=== PATIENT | male | born 1960 ===

== ENCOUNTER 2022-08-24 11:47 | Observation (INO) | payer OTHER ==
[~2022-08-24] VITALS: Ht 167.6 cm; Wt 81.2 kg
[2022-08-24 11:47] VITALS: BP 178/112
--- NOTE | 2022-08-24 11:47 | NUR ---
ARRIVAL PT ARRIVED VIA EMS TO ED 4 WITH C/O CHEST PAIN UPON CALLING 911. EMS INITIATED IV AND GAVE NS, NITRO X2, FENTANYL, ASPIRIN, AND ZOFRAN. VITALS TAKEN AND DR NOTIFIED.
--- NOTE | 2022-08-24 12:15 | ER.PDOC ---
General Chief Complaint: Requesting Medical Care Stated Complaint: CHEST PAIN Time seen by MD: 12:08 Source: patient, EMS Exam Limitations: no limitations History of Present Illness Initial Comments 61 yo man presented to the ER with severe substernal chest pain. 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 He has an artificial mitral valve and takes anti coagulants The chest pain was crushing and unreleaved with NTG sl/Drip He had an elev ated BP at the seen Upon arrival the pain was gone Non reproducible No nausea no radiation Denies prior MA EKG did not reveal an acute issue Timing/Duration: 1 hour Severity/Quality: severe Radiation: no radiation Activities at Onset: none Prior CP/Workup: No Prior Cardiac Workup, Cardiac Cath, Other (mitral valve replacement Hx of Atrial Fib) Nitro Today/Relief: 0.4 mg x 2, Provided By EMS Aspirin Today: 325 mg x 1 Allergies: Coded Allergies: No Known Allergies (Unverified , 08/24/22) Past Medical History Medical History: cardiac problems, hypertension Surgical History: other (mitral valve) Family History Significant Family History: no pertinent family hx Social History Smoking: non-smoker Drug Use: none Reviewed Nursing Reviewed: Vital Signs, Abn. Noted Constitutional: no symptoms reported EENTM: no symptoms reported Respiratory: no symptoms reported Cardiovascular: see HPI Gastrointestinal: no symptoms reported Genitourinary: no symptoms reported Musculoskeletal: no symptoms reported Skin: no symptoms reported Psychiatric/Neurological: no symptoms reported Endocrine: no symptoms reported Hematologic/Lymphatic: no symptoms reported All Other Systems: Reviewed and Negative Physical Exam General Appearance: WD/WN, Anxious, Mild Distress HEENT: PERRL/EOMI, Normal ENT Inspection Neck: Non-Tender, Full Range of Motion, Supple Respiratory: chest non-tender, lungs clear, normal breath sounds, no respiratory distress, other (well healed thoracostomy scar) Gastrointestinal: Normal Bowel Sounds, No Organomegaly, No Pulsatile Mass Extremities: Normal Range of Motion, Non-Tender, Normal Inspection, No Pedal Edema Neurologic/Psychiatric: leather scrubber 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 NML as Tested, No Motor/Sensory Deficits, Alert Skin: Normal Color, Warm/Dry, Cyanosis Results/Orders Results/Orders Laboratory Tests Test 08/24/22 12:12 White Blood Count 8.3 10^3/uL (4.5-11.0) Red Blood Count 4.22 10^6/uL (4.50-5.90) Hemoglobin 12.9 g/dL (13.9-16.3) Hematocrit 39.1 % (37.0-53.0) Mean Corpuscular Volume 92.7 fL (78-100) Mean Corpuscular Hemoglobin 30.6 pg (26-34) Mean Corpuscular Hemoglobin Concent 33.0 g/dL (33-36.5) Red Cell Distribution Width 13.4 % (11.5-14.5) Platelet Count 183 10^3/uL (150-400) Mean Platelet Volume 8.9 fL (7.8-11.0) Neutrophils (%) (Auto) 68.0 % (41.0-85.0) Lymphocytes (%) (Auto) 16.0 % (24.0-44.0) Monocytes (%) (Auto) 6.9 % (5.0-12.0) Neutrophils # (Auto) 5.6 10^3/uL (1.8-7.7) Lymphocytes # (Auto) 1.32 10^3/uL1 (1.0-4.8) Monocytes # (Auto) 0.6 10^3/uL (0.3-0.8) Absolute Immature Granulocyte (auto 0.13 10^3 u/L (0-2) Absolute Eosinophils (auto) 0.5 10^3/uL (0.0-0.2) Immature Granulocytes % 1.60 % (0.00-0.50) Eosinophils % 6.5 % (0.0-5.0) Basophils % 1.0 % (0.0-0.2) Basophils # 0.1 10^3/uL (0.0-0.1) Sodium Level 133 mmol/L (132-145) Potassium Level 4.4 mmol/L (3.6-5.2) Chloride Level 99.0 mmol/L (96-109) Carbon Dioxide Level 26.8 mmol/L (20.0-32) Anion Gap 11.6 Blood Urea Nitrogen 16 mg/dL (7-18) Creatinine 1.28 mg/dL (0.59-1.40) Estimated GFR () 68.7 (>/=60) Est GFR (CKD-EPI)(Non-Afr Montserratian) 56.8 (>/=60) BUN/Creatinine Ratio 12.0 (10.0-20.0) Glucose Level 189 mg/dL (70-110) Calcium Level 8.2 mg/dL (8.4-10.5) Total Bilirubin 0.5 mg/dL (0.2-1.0) Aspartate Amino Transf (AST/SGOT) 33 U/L (0-35) Alanine Aminotransferase (ALT/SGPT) 53 U/L (12-78) Alkaline Phosphatase 66 U/L (50-136) Total Creatine Kinase 114 U/L (39-308) Creatine Kinase MB 0.5 ng/mL (0.5-3.6) Troponin I High Sensitivity 49 ng/L (0-75) Pro-B-Type Natriuretic Peptide 1226 pg/mL (0-125) Total Protein 7.2 g/dL (6.4-8.2) Albumin 3.5 g/dL (3.4-5.0) Globulin 3.7 Albumin/Globulin Ratio 0.945 Joshua - ALINA JARRETT MD EKG (08/24/22 12:09) Xr Chest 1v (08/24/22 12:09) Cbc With Auto Diff (08/24/22 12:09) Comprehensive Metabolic Panel (08/24/22 12:09) Creatine Kinase (08/24/22 12:09) Creatine Kinase Mb (08/24/22 12:09) Probnp B-Type Broadcast Maintenance Engineer (08/24/22 12:09) Troponin I High Sensitivity (08/24/22 12:09) Sl elevated BNP troponin neg I spoke with the patient and explained the need for admission I had alreerachid spoken with Kerri Chisholm and Dr Minor at around 1:390 and agreed to admit will need serial exzymes EKG/XRAY/CT/US EKG: rhythm (atrial fib), QRS (narrow complexes), nonspecific ST T wave chg EKG Comments: normal axis XRAY: chest XRAY Comments: no active disease per report Consult/PCP Time Consult/PCP Called: 13:18 Consult/PCP: Dr Chisholm and DR Alvarado ~13:20 Reason/Comments: admission to r/o acs ER DEPART Departure Time of Disposition: 14:39 Disposition: 09 ADMITTED INPATIENT Impression: Primary Impression: CAD (coronary artery disease) Additional Impressions: H/O mitral valve replacement with mechanical valve HBP (high blood pressure) Condition: Stable Referrals: PCP,UNKNOWN (PCP) PRIMARY CARE PROVIDER Duration or Time Spent with Pa: 60 Problem Qualifiers ALINA JARRETT MD Aug 24, 2022 12:15
--- NOTE | 2022-08-24 12:19 | PCM.EKG ---
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
[2022-08-24 12:22] LABS: BASOPHIL # 0.1 10^3/uL (0.0-0.1); EOSINOPHIL # 0.5 10^3/uL (0.0-0.2); EOSINOPHIL % 6.5 % (0.0-5.0); LYMPHOCYTES # 1.32 10^3/uL1 (1.0-4.8); MEAN CORP HGB 30.6 pg (26-34); MONOCYTES # 0.6 10^3/uL (0.3-0.8); MONOCYTES % 6.9 % (5.0-12.0); NEUTROPHIL # 5.6 10^3/uL (1.8-7.7); PLATELET COUNT 183 10^3/uL (150-400); RED CELL DISTRIBUTION WIDTH 13.4 % (11.5-14.5)
--- NOTE | 2022-08-24 12:30 | NUR ---
BLOOD SUGAR IS 171MG/DL
[2022-08-24 12:45] LABS: CARBON DIOXIDE 26.8 mmol/L (20.0-32)
--- NOTE | 2022-08-24 13:03 | DIREP ---
PROCEDURE:CHEST 1 VIEW COMPARISON:None. INDICATIONS:chest pain ? aneurysim FINDINGS: LUNGS/PLEURA:No focal consolidation, pleural effusion, or pneumothorax. Subsegmental left basilar atelectasis. VASCULATURE:Mild pulmonary vascular congestion. CARDIAC:Normal heart size. Evidence of prior valve replacement surgery. Left atrial appendage occlusion device noted. MEDIASTINUM:Median sternotomy changes. Aortic arch calcifications. No visible mass or adenopathy. BONES:Normal. No fracture or visible bony lesion. OTHER:Negative. CONCLUSION: 1. No obvious aneurysm, though this would be better assessed with CT. 2. Mild pulmonary vascular congestion without overt edema. Dictated by: Nate Culver M.D. On 08/24/2022 at 01:00 PM
--- NOTE | 2022-08-24 13:12 | NUR ---
HOSPITALIST DR JARRETT ON THE PHONE WITH DR GAMBOA
--- NOTE | 2022-08-24 13:19 | NUR ---
VIET JARRETT ON THE PHONE WITH VIET
[2022-08-24] MEDS ORDERED: ASPIRIN PO STA (13:26)
[2022-08-24] MEDS ORDERED: PROTONIX PO STA (14:16)
--- NOTE | 2022-08-24 14:19 | PCM.HP ---
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 He pulled over and immediately presented here. Patient reports while he has had a mitral valve replaced many years prior, he has never had similar pain such as this. He has never had a heart cath, and knows of no other cardiac history. He had otherwise been in his usual state of good health, and has no history of GERD. Time of my exam his pain is markedly improved, though he is concerned that his blood pressure is elevated to the 180s systolic which he reports is markedly above his norm. Review of Systems Other Complete review of systems negative except as per HPI Allergies: Coded Allergies: No Known Allergies (Unverified , 08/24/22) VTE VTE Risk Score VTE Risk: Score 0-1 = Low Risk (Aggressive mobilization; early ambulation; no VTE prophylaxis required) Score 2: Moderate Risk (Intermittent/Pneumatic Compression Device OR Lovenox/Heparin/Coumadin) Score 3-4: High Risk (Intermittent/Pneumatic Compression Device AND Lovenox/Heparin/Coumadin) Score > or =5: Highest Risk (Intermittent/Pneumatic Compression Device AND Lovenox/Heparin/Coumadin) Exam Vital Signs Vital Signs Date Time Temp Pulse Resp B/P (MAP) Pulse Ox O2 Delivery O2 Flow Rate FiO2 08/24/22 11:47 97.6 91 18 08/24/22 11:47 178/112 (134) 91 Room Air* 0 21 General Appearance: Alert, Oriented X3, Cooperative, No acute distress HEENT: Atraumatic, PERRLA, EOMI, Mucous membr. moist/pink Respiratory: Clear to auscultation, Normal air movement Cardiovascular: Regular rate Abdominal: Normal bowel sounds, Soft, No tenderness Extremities: No clubbing, No cyanosis Skin: No rash, No breakdown Neuro: Normal gait, Normal speech, Strength at 5/5 X4 ext Psych/Mental Status: Mental status NL, Mood NL Assessment/Plan Assessment/Plan Problems: (1) H/O mitral valve replacement with mechanical valve Status: Chronic Assessment & Plan: On Eliquis, appears to be functioning well has never had issues with since placement ICD Code: Z95.2 - Presence of prosthetic heart valve SNOMED: 54315999, [id number] (2) HTN (hypertension) Status: Chronic Assessment & Plan: Systolics were in the 180s upon arrival, did not appear to correlate with the patient's chest pain, starting Coreg 12 and will titrate as needed ICD Code: I10 - Essential (primary) hypertension SNOMED: 47414020 (3) CAD (coronary artery disease) Status: Acute Assessment & Plan: Acute chest pain at rest today no other cardiac history stay for mitral valve, no history of stresses or left heart catheterization, though he has had echoes in the past associated with the valve placement and monitoring. We will give high-dose aspirin now, start patient on atorvastatin and plan for echo in the morning after serial troponins overnight. ICD Code: I25.10 - Atherosclerotic heart disease of kiana coronary artery without angina pectoris SNOMED: 65735018 ANDRES GAMBOA MD Aug 24, 2022 14:19
[2022-08-24 15:00] VITALS: BP 190/135
[2022-08-24] MEDS: COREG PO SCH ×2 (16:28→22:08)
[2022-08-24 19:20] VITALS: BP 169/120
[2022-08-24] MEDS ORDERED: VALS1TAB8 PO (20:27)
[2022-08-24] MEDS ORDERED: METF500T17 PO (20:27)
[2022-08-24] MEDS ORDERED: AMIO100T4 PO (20:40)
[2022-08-24] MEDS ORDERED: LINA5TAB PO (20:40)
[2022-08-24] MEDS ORDERED: VALS80TA3 PO (20:40)
[2022-08-24] MEDS ORDERED: PRAV40TA2 PO (20:40)
[2022-08-24] MEDS ORDERED: APIX5TAB PO (20:40)
[2022-08-24] MEDS ORDERED: CARV6.25 PO (20:40)
[2022-08-24] MEDS ORDERED: ASPI-667 PO (20:40)
[2022-08-24] MEDS ORDERED: METF10007 PO (20:40)
[2022-08-24] MEDS: ELIQUIS PO SCH (22:20)
[2022-08-24] MEDS ORDERED: TRADJENTA PO SCH (23:00)
[2022-08-24] MEDS ORDERED: ASPIRIN PO SCH (23:00)
[2022-08-24] MEDS ORDERED: CLARITIN PO ONE (23:00)
[2022-08-25 00:15] VITALS: BP 122/62
[2022-08-25] MEDS ORDERED: FLONASE NS PRN (03:30)
[2022-08-25 04:43] VITALS: BP 128/79
[2022-08-25 05:42] LABS: BASOPHIL # 0.1 10^3/uL (0.0-0.1); BASOPHIL % 0.9 % (0.0-0.2); EOSINOPHIL # 0.5 10^3/uL (0.0-0.2); EOSINOPHIL % 6.6 % (0.0-5.0); LYMPHOCYTES # 1.85 10^3/uL1 (1.0-4.8); LYMPHOCYTES % 23.6 % (24.0-44.0); MEAN CORP HGB 30.1 pg (26-34); MONOCYTES # 0.6 10^3/uL (0.3-0.8); NEUTROPHIL # 4.8 10^3/uL (1.8-7.7); NEUTROPHILS % 60.6 % (41.0-85.0); PLATELET COUNT 200 10^3/uL (150-400); RED CELL DISTRIBUTION WIDTH 13.5 % (11.5-14.5)
[2022-08-25 05:47] LABS: CARBON DIOXIDE 29.1 mmol/L (20.0-32)
[2022-08-25] MEDS ORDERED: GLUCOPHAGE ONE (07:54)
[2022-08-25] MEDS ORDERED: PROTONIX PO ONE (07:54)
[2022-08-25] MEDS: COREG PO SCH (08:07)
[2022-08-25] MEDS: ELIQUIS PO SCH (08:08)
[2022-08-25 08:27] VITALS: BP 175/94
[2022-08-25] MEDS ORDERED: COREG PO SCH ×4 (09:00→21:00)
[2022-08-25] MEDS ORDERED: GLUCOPHAGE PO SCH (09:00)
[2022-08-25] MEDS ORDERED: CORDARONE PO SCH (09:00)
[2022-08-25] MEDS ORDERED: COZAAR PO SCH (09:00)
[2022-08-25] MEDS ORDERED: ASPIRIN PO SCH (09:00)
[2022-08-25] MEDS ORDERED: PROTONIX PO SCH (09:00)
[2022-08-25] MEDS ORDERED: TRADJENTA PO SCH (09:00)
[2022-08-25] MEDS ORDERED: ELIQUIS PO SCH (09:00)
[2022-08-25 11:45] VITALS: BP 135/72
[2022-08-25] MEDS ORDERED: CARV12.5 PO (13:51)
--- NOTE | 2022-08-25 13:53 | PRM.DC ---
Discharge Summary Date of Discharge: Aug 25, 2022 Time of Request to Discharge: 13:52 Hospital Course Mr. Pete is a very pleasant 61-year-old gentleman with history of congenital m itral valve information who underwent mechanical mitral valve replacement who also has hypertension and diabetes who was tracking across country with his when he experienced acute chest pain. He was subsequently admitted given his risk factors for serial troponins as well as echo in the morning, though none of these revealed any acute cardiac complaints. As a consequence the patient's antihypertensives were adjusted slightly with an increase in his Coreg from 6-12 continue his home valsartan aspirin and pravastatin while he remained on Eliquis for his mitral valve. Given the fact that he already follows with a consultant internship in [place], the patient is discharged with refills of his Coreg and will follow-up in clinic with his consultant internship when he returns home. General: Alert, Oriented X3, Cooperative, No acute distress HEENT: Atraumatic, PERRLA, EOMI, Mucous membr. moist/pink Neck: Supple, No JVD, No thyromegaly Lungs: Clear to auscultation, Normal air movement Heart: Regular rate, Normal S1, Normal S2 Abdomen: Normal bowel sounds, Soft Extremities: No clubbing, No cyanosis Skin: No rashes, No breakdown Neuro: Normal gait, Normal speech, Strength at 5/5 X4 ext Psych/Mental Status: Mental status NL, Mood NL Scheduled Amiodarone HCl (Amiodarone HCl), 100 MG PO BID, (Reported) Apixaban (Eliquis), 5 MG PO BID, (Reported) Aspirin (Aspirin), 81 MG PO DAILY24, (Reported) Carvedilol 12.5MG (Coreg 12.MG), 12.5 MG PO BID Carvedilol 6.25MG (Coreg 6.25MG), 6.25 MG PO BID, (Reported) Linagliptin (Tradjenta), 5 MG PO DAILY24, (Reported) Metformin Hcl (Metformin Hcl), 1,000 MG PO BID, (Reported) Pravastatin Sodium (Pravastatin Sodium), 40 MG PO HS, (Reported) Valsartan (Diovan), 80 MG PO BID, (Reported) Discontinued Medications Metformin Hcl (Metformin Hcl), 2 TAB PO DAILY24, (Reported) Discontinued Reason: Cancel Valsartan/Hydrochlorothiazide (Diovan Hct 160-12.5 Mg Tab), 1 TAB PO DAILY, (Reported) Discontinued Reason: Discontinue Sepsis Evaluation @ Discharge 08/25/22 08:50 Course Sepsis Screening Results: Posi: NEGATIVE Sepsis Qualifier/Stage: NO DEFINITE RISK Duration or Total Time Spent w: 60 Vitals & review Data Vital Sign - Last 24 Hours 08/24/22 08/24/22 08/24/22 08/24/22 15:00 16:28 16:48 18:08 Temp 98.4 Pulse 73 73 Resp 20 B/P (MAP) 190/135 (153) 190/135 Pulse Ox 98 O2 Delivery Room Air* Room Air Room Air O2 Flow Rate 0 0.00 0.00 FiO2 21 08/24/22 08/24/22 08/24/22 08/24/22 19:10 19:11 19:20 22:08 Temp 97.7 Pulse 104 104 Resp 20 B/P (MAP) 169/120 (136) 169/120 Pulse Ox 94 O2 Delivery Room Air Room Air Room Air* O2 Flow Rate 0.00 0.00 0 FiO2 21 08/25/22 08/25/22 08/25/22 08/25/22 00:15 04:43 08:07 08:27 Temp 97.5 98.5 97.5 Pulse 44 67 67 59 Resp 18 18 18 B/P (MAP) 122/62 (82) 128/79 (95) 128/79 175/94 (121) Pulse Ox 88 92 95 O2 Delivery Room Air* Room Air* Room Air* O2 Flow Rate 0 0 0 FiO2 21 21 21 08/25/22 08/25/22 08/25/22 08/25/22 08:50 08:54 08:57 11:45 Temp 97.9 Pulse 59 58 Resp 18 B/P (MAP) 175/94 175/94 135/72 (93) Pulse Ox 98 O2 Delivery Room Air Room Air* O2 Flow Rate 0.00 0 FiO2 21 Intake and Output 08/25/22 07:00 Intake Total 400 ml Balance 400 ml Laboratory Tests Test 08/24/22 12:12 08/24/22 16:39 08/24/22 17:41 08/24/22 19:17 White Blood Count 8.3 10^3/uL Red Blood Count 4.22 10^6/uL Hemoglobin 12.9 g/dL Hematocrit 39.1 % Mean Corpuscular Volume 92.7 fL Mean Corpuscular Hemoglobin 30.6 pg Mean Corpuscular Hemoglobin Concent 33.0 g/dL Red Cell Distribution Width 13.4 % Platelet Count 183 10^3/uL Mean Platelet Volume 8.9 fL Neutrophils (%) (Auto) 68.0 % Lymphocytes (%) (Auto) 16.0 % Monocytes (%) (Auto) 6.9 % Neutrophils # (Auto) 5.6 10^3/uL Lymphocytes # (Auto) 1.32 10^3/uL1 Monocytes # (Auto) 0.6 10^3/uL Absolute Immature Granulocyte (auto 0.13 10^3 u/L Absolute Eosinophils (auto) 0.5 10^3/uL Immature Granulocytes % 1.60 % Eosinophils % 6.5 % Basophils % 1.0 % Basophils # 0.1 10^3/uL Sodium Level 133 mmol/L Potassium Level 4.4 mmol/L Chloride Level 99.0 mmol/L Carbon Dioxide Level 26.8 mmol/L Anion Gap 11.6 Blood Urea Nitrogen 16 mg/dL Creatinine 1.28 mg/dL Estimated GFR () 68.7 Est GFR (CKD-EPI)(Non-Afr Micronesian) 56.8 BUN/Creatinine Ratio 12.0 Glucose Level 189 mg/dL Calcium Level 8.2 mg/dL Total Bilirubin 0.5 mg/dL Aspartate Amino Transf (AST/SGOT) 33 U/L Alanine Aminotransferase (ALT/SGPT) 53 U/L Alkaline Phosphatase 66 U/L Total Creatine Kinase 114 U/L Creatine Kinase MB 0.5 ng/mL Troponin I High Sensitivity 49 ng/L 48 ng/L 48 ng/L Pro-B-Type Natriuretic Peptide 1226 pg/mL Total Protein 7.2 g/dL Albumin 3.5 g/dL Globulin 3.7 Albumin/Globulin Ratio 0.945 Bedside Glucose 190 Test 08/24/22 20:10 08/25/22 05:22 08/25/22 07:22 08/25/22 11:25 Bedside Glucose 177 181 212 White Blood Count 7.9 10^3/uL Red Blood Count 4.48 10^6/uL Hemoglobin 13.5 g/dL Hematocrit 41.0 % Mean Corpuscular Volume 91.5 fL Mean Corpuscular Hemoglobin 30.1 pg Mean Corpuscular Hemoglobin Concent 32.9 g/dL Red Cell Distribution Width 13.5 % Platelet Count 200 10^3/uL Mean Platelet Volume 8.6 fL Neutrophils (%) (Auto) 60.6 % Lymphocytes (%) (Auto) 23.6 % Monocytes (%) (Auto) 8.0 % Neutrophils # (Auto) 4.8 10^3/uL Lymphocytes # (Auto) 1.85 10^3/uL1 Monocytes # (Auto) 0.6 10^3/uL Absolute Immature Granulocyte (auto 0.02 10^3 u/L Absolute Eosinophils (auto) 0.5 10^3/uL Immature Granulocytes % 0.30 % Eosinophils % 6.6 % Basophils % 0.9 % Basophils # 0.1 10^3/uL Sodium Level 137 mmol/L Potassium Level 4.3 mmol/L Chloride Level 102.0 mmol/L Carbon Dioxide Level 29.1 mmol/L Glucose Level 175 mg/dL Blood Urea Nitrogen 15 mg/dL Creatinine 1.19 mg/dL Calcium Level 8.8 mg/dL Anion Gap 10.2 Estimated GFR () 74.7 Est GFR (CKD-EPI)(Non-Afr Micronesian) 61.7 BUN/Creatinine Ratio 12.0 Troponin I High Sensitivity 48 ng/L Current Medications Medications (Trade) Dose Ordered Sig/Manuel PRN Reason Start Time Stop Time Status Last Admin Amiodarone HCl (Cordarone) 100 mg BID 08/25/22 09:00 09/24/22 08:59 08/25/22 08:54 Atorvastatin Calcium (Lipitor) 10 mg HS 08/25/22 21:00 09/24/22 20:59 Carvedilol (Coreg) 12.5 mg BID 08/25/22 21:00 09/24/22 20:59 Fluticasone Propionate (Flonase) 2 sprays BID PRN CONGESTION 08/25/22 03:30 09/24/22 03:29 Losartan Potassium (Cozaar) 50 mg DAILY 08/25/22 09:00 09/24/22 08:59 08/25/22 08:57 Metformin HCl (Glucophage) 1,000 mg BIDM 08/25/22 09:00 09/24/22 08:59 08/25/22 08:07 Pantoprazole Sodium (Protonix) 40 mg DAILY 08/25/22 09:00 09/24/22 08:59 08/25/22 08:08 LEVEL 1 SEPSIS INFECTION CRITE: None/Not assessed LEVEL 2-SIRS (LIST ALL THAT AP: None/Not assessed Cardiovascular Evidence: Not Assessed or None Hematologic Evidence: None/Not assessed Hepatic Evidence: None/Not assessed Metabolic Evidence: None/Not assessed Neurological Evidence: None/Not assessed Respiratory Evidence: None/Not assessed Renal Evidence: None/Not assessed O2 Sat by Pulse Oximetry: 98 Oxygen Flow Rate: 0.00 ANDRES GAMBOA MD Aug 25, 2022 13:53
[2022-08-25 14:50] VITALS: BP 135/72
--- NOTE | 2022-08-25 14:50 | NUR ---
DISCHARGE NOTE IV DC'D, TIP INTACT. VERBAL AND WRITTEN DISCHARGE INSTRUCTIONS GIVEN, VERBALIZED UNDERSTANDING, TO PV VIA WC IN STABLE CONDITION
--- NOTE | 2022-08-25 15:15 | PCM.ECHO ---
APPROVED REPORT EXAM: Comprehensive 2D, Doppler, and color-flow Echocardiogram. Patient Location: IN-PATIENT Indications ACS 2D Dimensions RVDd 3.50 cm (0.4-1.4cm/m2) LVOT Diameter 2.30 (1.8-2.4cm) LVEF(%) 54.70 (>50%) M-Mode Dimensions RVDd 2.50 (2.1-3.2cm) Left Atrium(MM) 3.95 (2.5-4.0cm) IVSd 1.20 (0.7-1.1cm) Aortic Root 4.00 (2.2-3.7cm) LVDd 4.80 (4.0-5.6cm) Aortic Cusp Exc 1.65 (1.5-2.0cm) PWd 1.05 (0.7-1.1cm) MV EPSS 1.49 (<0.5cm) IVSs 1.50 cm FS (%) 32.25 % LVDs 3.25 (2.0-3.8cm) ESV(Teich) 43.47 ml PWs 1.55 cm LVEF(%) 60.41 (>50%) Volumes Biplane 2D LV Volumes Biplane 2D LA Volumes LVEDv A4C 43.11 mL LA ESV Index LVESv A4C 19.53 mL Aortic Valve AoV Peak Ladarius. 0.75 m/s AoV VTI 17.60 cm AO Peak GR. 2.35 mmHg AO Mean GR. 1.50 mmHg JAIME (VMAX) 2.95 cm2 Mitral Valve MV E Velocity 1.70m/s MR Peak Gr. 4.85mmHg MV DECEL TIME 353.65ms MV A Velocity 0.55m/s Tricuspid Valve TR P. Velocity 2.05m/s RAP ESTIMATE 5.00mmHg TR Peak Gr. 18.27mmHg LEFT VENTRICLE The left ventricle is normal size. The left ventricular systolic function is normal. The left ventricular ejection fraction is within the normal range. There is normal left ventricular wall thickness. There is normal LV segmental wall motion. There is no ventricular septal defect visualized. No left ventricle thrombus noted on this study. LVEF is 55%. RIGHT VENTRICLE The right ventricle is normal size. The right ventricular systolic function is normal. There is normal right ventricular wall thickness. ATRIA Left atrium is moderately dilated. Right atrium is severely dilated. The interatrial septum is intact with no evidence for an atrial septal defect. AORTIC VALVE The aortic valve is normal in structure. There is no aortic valvular stenosis. No aortic regurgitation is present. There is no aortic valvular vegetation. MITRAL VALVE There is no mitral valve stenosis. Mild to moderate mitral regurgitation. There is no evidence of mitral valve vegetations. Mechanical mitral valve is present. Prosthetic mitral valve is normal in appearance. Prosthetic mitral valve opening is normal. TRICUSPID VALVE The tricuspid valve is normal in structure. There is no tricuspid valve stenosis. Moderate tricuspid regurgitation. There is no tricuspid valve vegetations. PULMONIC VALVE The pulmonary valve is normal in structure. There is no pulmonic valvular stenosis. There is no pulmonic valvular regurgitation. There is no pulmonic valve vegetations. GREAT VESSELS The aortic root is normal in size. Pulmonary artery is not well visualized. Aortic arch is not well visualized. The IVC is normal in size and collapses >50% with inspiration. PERICARDIUM There is no pericardial effusion. There is no pleural effusion. Other Information Study Quality: Fair <Conclusion> The left ventricular systolic function is normal. LVEF is 55%. Left atrium is moderately dilated. Right atrium is severely dilated. Mechanical mitral valve is present. Prosthetic mitral valve is normal in appearance. Prosthetic mitral valve opening is normal. Mild to moderate mitral regurgitation. Moderate tricuspid regurgitation. Electronically signed by : RAJI LLANOS. 08/25/2022 15:15:30
[2022-08-25] MEDS ORDERED: LIPITOR PO SCH (21:00)
--- NOTE | 2022-08-25 23:43 | CNH ---
DATE OF CONSULTATION: 08/25/2022 DICTATOR NAME: RAJI LLANOS DO REASON FOR CONSULTATION: Chest pain. HISTORY OF PRESENT ILLNESS: This is a 61-year-old male who presented to the Emergency Room with sudden onset of chest discomfort. Upon presentation, EKG shows chronic atrial fibrillation with controlled ventricular response with a prolonged QT interval. He has a known history of atrial fibrillation. High-sensitive troponin was negative x 4. At this time, he denies any chest pain symptoms. A consultation was placed to Cardiology Service for evaluation. PAST MEDICAL HISTORY: Significant for: * Chronic atrial fibrillation. * History of mitral valve disease, status post mitral valve replacement surgery. * Hypertension. * Diabetes mellitus. * Hyperlipidemia. PAST SURGICAL HISTORY: Status post mitral valve replacement surgery with mechanical valve. ALLERGIES: He has no known drug allergies. MEDICATIONS: He takes at home: * Amiodarone 100 mg p.o. b.i.d. * Eliquis 5 mg p.o. b.i.d. * Aspirin 81 mg daily. * Carvedilol 12.5 mg p.o. b.i.d. * Tradjenta. * Metformin. * Pravastatin 40 mg p.o. at bedtime. * Diovan 80 mg p.o. b.i.d. SOCIAL HISTORY: Denies tobacco use, denies alcohol use, denies illicit drug use. FAMILY HISTORY: Denies any family history of premature coronary artery disease or sudden cardiac . REVIEW OF SYSTEMS: As per HPI and as per ER records. All systems reviewed, negative for interval change. PHYSICAL EXAMINATION: VITALS: Blood pressure is 135/72, respiratory rate is 18, pulse is 58, temperature is 97.9, pulse oximetry is 98% on room air. GENERAL: He is in no apparent distress, alert and oriented x 3. HEENT: Normocephalic, atraumatic. Extraocular muscles intact. Pupils equally round, reactive to light and accommodation. CARDIAC: S1, S2, irregularly irregular. No gallops or clicks, +2/6 holosystolic murmur. LUNGS: Clear to auscultation bilaterally. No wheezing, rhonchi or rales. ABDOMEN: Soft, nontender, nondistended. Positive bowel sounds in all 4 quadrants. EXTREMITIES: No cyanosis, no clubbing, no edema, +2 pedal pulses palpable bilaterally. NEUROLOGIC: No neurological deficits. Sensation is intact. IMPRESSION: * Noncardiac chest pain. * Chronic atrial fibrillation -- on Eliquis oral anticoagulation. * Status post mechanical mitral valve replacement surgery. * Hypertension. * Hyperlipidemia. * Type 2 diabetes mellitus. * Left ventricular ejection fraction of 55% on 2D echo done this admission. RECOMMENDATIONS: This is a 61-year-old male who presented to the Emergency Room with sudden onset of chest discomfort. EKG shows atrial fibrillation with controlled ventricular response with prolonged QT interval. The patient has a history of chronic atrial fibrillation. A 2D echo shows normal left ventricular ejection fraction of 55%. High-sensitive troponin is negative x 4. In view of these, no further cardiovascular workup is necessary at this time. I suspect his chest pain is likely noncardiac. The patient is visiting from [place] and states that he is returning back to [place] this afternoon. He has been instructed to follow up with his primary tromper within 1 week of discharge. Lifestyle modification factors have been strongly advised. Betsy ESPINOSA D.O. DR: ROBERT TIAleksandr: [id number] RECEIPT: [id number]
== END 2022-08-25 14:50 | disposition home or self-care (01) ==
LOC: EDBD 11:47 → ER 11:47 → MS 13:41 → UNDOADMOB 13:41 → INTOOBSV 13:41 → MS 13:41
PROVIDERS: ADMIT Surgery; ATTEND Surgery
DX: I25.10 Atherosclerotic heart disease of native coronary artery without angina pectoris (principal); I10 Essential (primary) hypertension; I48.20 Chronic atrial fibrillation, unspecified; E11.9 Type 2 diabetes mellitus without complications; E78.5 Hyperlipidemia, unspecified; Z95.2 Presence of prosthetic heart valve; Z79.01 Long term (current) use of anticoagulants; Z79.899 Other long term (current) drug therapy
CPT/HCPCS: 99285; 71045; 80053; 85025 ×2; 82948 ×4; 36415 ×2; 84484 ×4; 82553; 83880; 82550; 93005; 80048; 93306; G0378 ×25; J3490